=== PATIENT | female | born 1990 | race Caucasian/White ===

== ENCOUNTER 2019-09-09 05:19 | Day surgery (SDC) | payer BC ==
[~2019-09-09] VITALS: Ht 165.1 cm; Wt 75.3 kg
--- NOTE | ~2019-09-09 | OP ---
PATIENT NAME: ERNST BAÑUELOS MEDICAL RECORD: [id number] LOCATION:[facility] ADMISSION DATE: SURGEON: AMADEO MCLAIN MD DATE OF OPERATION: 09/09/2019 PREOPERATIVE DIAGNOSES: 1. Bleeding internal hemorrhoids. 2. Anal skin tag. POSTOPERATIVE DIAGNOSIS: Anal skin tag. PROCEDURES: 1. Anal exam under anesthesia. 2. Excision of anterior anal skin tag. SURGEON: Amadeo Mclain MD REPORT OF PROCEDURE: The patient was placed in the jackknife prone position. A Hill-Dunaway anoscope was inserted and a 360 degree inspection was performed of the anus. The patient had just very small external hemorrhoidal tissue on the posterior aspect, but internally there was no sign of any internal hemorrhoidal tissue. Tissues all appeared to be normal with no signs of swellings, masses, lesions, fissures, or fistulas. We dilated up the anal orifice using the multiple sizes of the Hill-Dunaway anoscope and again could not see any evidence of any tears anywhere. The patient did have a large pedunculated anterior anal skin tag that had a wide base to it. I went ahead and excised this down to the underlying tissue using electrocautery. We then irrigated out the wound and treated the underlying tissue with electrocautery to stop any sort of bleeding. We then closed this longitudinally out from the anus using a running 2-0 chromic. COMPLICATIONS: None. CONDITION: Stable. ANESTHESIA: General endotracheal and local. BLOOD LOSS: Minimal. TRANSINT:[id number] Voice Confirmation ID: [id number] DOCUMENT ID: [id number] AMADEO MCLAIN MD CC: GISELE MUNOZ [id number] DICTATION DATE: 09/09/19830 SENIOR TRAINING AND DEVELOPMENT REP: 09/09/19847 [facility] [address] [id number]
[~2019-09-09 05:19] MED LIST: JENCYCLA PO
[2019-09-09 06:10] LABS: HCG URINE NEGATIVE (NEGATIVE)
[2019-09-09 06:17] LABS: CALC OSMOLALITY 284 mosm/kg (275-300); CALCIUM 8.6 mg/dL (8.5-10.1); CHLORIDE - SERUM 108 mmol/L (98-107); CREATININE - SERUM 0.7 mg/dL (0.6-1.3); GLUCOSE 96 mg/dL (74-106); POTASSIUM - SERUM 3.8 mmol/L (3.5-5.1); SODIUM 144 mmol/L (136-145); UREA NITROGEN 8 mg/dL (7-18); eGFR NON AFRICAN AMERICAN > 90 mL/min (90-120)
[2019-09-09 06:28] LABS: HEMOGLOBIN 13.7 g/dL (12-16); LYMPHOCYTES 40.9 % (15-50); MCH 27.8 pg (26.0-34.0); MCHC 33.4 g/dL (31.0-37.0); MCV 83.3 fL (80.0-100.0); MEAN PLATELET VOLUME 10.5 fL (7.4-10.4); NEUTROPHILS 51.3 % (40-80); PLATELET COUNT 186 10x3/uL (130-400); RBC 4.92 10x6/uL (4.00-5.40); RDW 13.6 % (11.5-14.5); WBC 7.2 10x3/uL (4.8-10.8)
[2019-09-09 06:55] VITALS: BP 103/59; Ht 165.1 cm; Wt 75.3 kg
[2019-09-09] MEDS ORDERED: HYDROCODON-ACE1 EA10 PO (08:27)
--- NOTE | 2019-09-09 10:05 | NUR ---
PATIENT AMBULATES TO BATHROOM AND VOIDS LARGE AMOUNT IN TOILET WITHOUT DIFFICULTY. LEFT HAND PIV DC'D WITH TIP INTACT. PATIENT DRESSING IN PERSONAL CLOTHING
--- NOTE | 2019-09-09 10:26 | NUR ---
DISCHARGED HOME VIA WHEELCHAIR TO PRIVATE VEHICLE
== END 2019-09-09 10:26 | disposition home or self-care (01) ==
LOC: D.OPS 05:19 → D.PAN 07:30 → D.OPS 10:26
PROVIDERS: ATTEND Surgery
DX: K64.8 Other hemorrhoids (principal); K64.4 Residual hemorrhoidal skin tags